=== PATIENT | male | born 1930 | race Caucasian/White ===

== ENCOUNTER → 2016-10-16 | Outpatient (CLI) | payer MEDICARE, BC, OTHER ==
--- NOTE | 2016-10-16 14:30 | REP ---
LEFT KNEE, FIVE VIEWS: Multiple views of the left knee are performed. There is no evidence of acute fracture or dislocation. There are moderate degenerative changes. There is moderate medial joint space narrowing with subchondral sclerosis and spurring. There is spurring of the tibial spines. There is some calcification of the distal quadriceps tendon above the patella. There is a large spur of the lateral patellar facet. There appears to be a small joint effusion. IMPRESSION: Moderate degenerative changes. No evidence of fracture or dislocation. Signed by Nino Elder MD 10/16/2016 04:44 P
== END ==
LOC: M WUC 13:10
PROVIDERS: ATTEND Physician Assistant
DX: M17.12 Unilateral primary osteoarthritis, left knee (principal)

== ENCOUNTER 2016-12-05 12:50 | Outpatient (RCR) | payer MEDICARE, BC, OTHER | END 2016-12-07 | LOC: M CR 12:50 | PROVIDERS: ATTEND Internal Medicine | DX: Z51.89 Encounter for other specified aftercare (principal); Z98.61 Coronary angioplasty status; I25.10 Atherosclerotic heart disease of native coronary artery without angina pectoris ==

== ENCOUNTER → 2016-12-24 | Outpatient (CLI) | payer MEDICARE, BC, OTHER ==
--- NOTE | 2016-12-25 08:58 | REP ---
PET/CT: History: Diagnosing lung carcinoma. History of prostate carcinoma status post radiation therapy in 2006. Comparisons: Comparison chest CT study November 28, 2016 from [facility] shows abnormal bilateral upper lobe opacities. TECHNIQUE: 48 minutes following the intravenous injection of a 10.7 mCi dose of F-18 FDG, three-dimensional PET scintigraphy is acquired from the skull base to the proximal thighs. Triplanar noncontrast CT scanning is acquired through the same anatomic range for attenuation correction, and image registration with scan parameters optimized to minimize radiation exposure to the patient. PET scintigraphy and CT datasets were fused and displayed on a workstation with multiplanar and projection display capability. PET/CT Findings: The nodular lesion in the left upper lobe near the posterior apex shows discernible FDG accumulation. It displays a maximum standard uptake value of 1.58, a mean value of 1.32 and a diameter of 11 mm. It is not felt to be in the hypermetabolic range at this time. No other abnormal hypermetabolic uptake is seen within the chest. There is no discernible FDG accumulation in the area of posterior pleural thickening or fibrosis seen at the right lung apex on recent chest CT. No other abnormal hypermetabolic uptake is seen within the chest. Head and neck soft tissues are unremarkable. No abnormal hypermetabolic uptake is seen in the abdomen, pelvis or proximal thighs. No abnormal skeletal hypermetabolic uptake is seen. Impression: The left upper lobe opacity shows discernible but non-hypermetabolic FDG accumulation. Malignancy cannot be completely excluded. Follow-up chest CT in 4-6 months recommended. Signed by Delio Deng MD 12/25/2016 10:12 A
== END ==
LOC: M PLARAD 14:34
PROVIDERS: ATTEND Internal Medicine
DX: R91.8 Other nonspecific abnormal finding of lung field (principal); D38.1 Neoplasm of uncertain behavior of trachea, bronchus and lung; Z85.6 Personal history of leukemia; Z85.46 Personal history of malignant neoplasm of prostate; Z95.5 Presence of coronary angioplasty implant and graft; N28.1 Cyst of kidney, acquired; E78.00 Pure hypercholesterolemia, unspecified; I44.0 Atrioventricular block, first degree
CPT/HCPCS: 78815; A9552

== ENCOUNTER 2016-12-29 09:18 | Outpatient (RCR) | payer MEDICARE, BC, OTHER | END 2017-01-07 | LOC: M CR 09:18 | PROVIDERS: ATTEND Internal Medicine | DX: Z51.89 Encounter for other specified aftercare (principal); Z98.61 Coronary angioplasty status; I25.10 Atherosclerotic heart disease of native coronary artery without angina pectoris ==

== ENCOUNTER 2017-01-08 08:56 | Outpatient (RCR) | payer MEDICARE, BC, OTHER | END 2017-02-06 | LOC: M CR 08:56 | PROVIDERS: ATTEND Internal Medicine | DX: Z51.89 Encounter for other specified aftercare (principal); I25.10 Atherosclerotic heart disease of native coronary artery without angina pectoris; Z98.61 Coronary angioplasty status ==

== ENCOUNTER → 2017-06-22 | Outpatient (REF) | payer MEDICARE, BC, OTHER ==
[2017-06-22 18:02] LABS: MEAN CORPUSCULAR HEMOGLOBIN 29.3 pg (27.0-33.0); MEAN CORPUSCULAR HGB CONC 31.9 g/dl (32.0-36.5); MEAN CORPUSCULAR VOLUME 91.8 fl (80.0-96.0); PLATELET COUNT, AUTOMATED 155 10^3/uL (150-450); RED CELL DISTRIBUTION WIDTH 13.5 % (11.5-14.5); WHITE BLOOD COUNT 10.1 10^3/uL (4.0-10.0)
[2017-06-22 18:14] LABS: INR 0.99
[2017-06-22 18:39] LABS: ALBUMIN 4.1 GM/DL (3.2-5.2); ANION GAP 6 MEQ/L (8-16); BLOOD UREA NITROGEN 21 MG/DL (7-18); CALCIUM LEVEL 9.4 MG/DL (8.8-10.2); CARBON DIOXIDE LEVEL 29 MEQ/L (21-32); CHLORIDE LEVEL 106 MEQ/L (98-107); CREATININE FOR GFR 0.85 MG/DL (0.70-1.30); GLOMERULAR FILTRATION RATE > 60.0 (>35); GLUCOSE, FASTING 100 MG/DL (83-110); PHOSPHORUS LEVEL 3.8 MG/DL (2.5-4.9); POTASSIUM SERUM 4.2 MEQ/L (3.5-5.1); SODIUM LEVEL 141 MEQ/L (136-145)
== END ==
LOC: M LABDRAW1 15:32
PROVIDERS: ATTEND Internal Medicine Cardiovascular Disease
DX: I20.0 Unstable angina (principal); Z95.5 Presence of coronary angioplasty implant and graft

== ENCOUNTER → 2017-07-23 | Outpatient (REF) | payer MEDICARE, BC, OTHER ==
[2017-07-23 18:25] LABS: PERCENT SATURATION 15.5 % (19.7-50.0)
== END ==
LOC: M LAB REF 15:22
PROVIDERS: ATTEND Internal Medicine
DX: D64.9 Anemia, unspecified (principal)

== ENCOUNTER 2017-09-04 08:40 | Outpatient (RCR) | payer MEDICARE, BC, OTHER | END 2017-09-09 | LOC: M CR 08:40 | DX: Z95.1 Presence of aortocoronary bypass graft (principal) | CPT/HCPCS: 93798 ==

== ENCOUNTER 2017-09-10 09:15 | Outpatient (RCR) | payer MEDICARE, BC, OTHER | END 2017-10-07 | LOC: M CR 09:15 | DX: Z95.1 Presence of aortocoronary bypass graft (principal) | CPT/HCPCS: 93798 ==

== ENCOUNTER → 2017-09-29 | Outpatient (REF) | payer MEDICARE, OTHER ==
[2017-09-29 14:03] LABS: IRON (FE) 55 UG/DL (65-175); PERCENT SATURATION 19.2 % (19.7-50.0); TOTAL IRON BINDING CAPACITY 286 UG/DL (250-450)
== END ==
LOC: M LAB REF 13:33
DX: D64.9 Anemia, unspecified (principal)
CPT/HCPCS: 83550

== ENCOUNTER 2017-10-09 13:15 | Outpatient (RCR) | payer MEDICARE, BC, OTHER | END 2017-11-07 | LOC: M CR 13:15 | DX: Z51.89 Encounter for other specified aftercare (principal); Z95.1 Presence of aortocoronary bypass graft | CPT/HCPCS: 93798 ==

== ENCOUNTER 2017-11-09 12:55 | Outpatient (RCR) | payer MEDICARE, BC, OTHER | END 2017-12-07 | LOC: M CR 12:55 | DX: Z95.1 Presence of aortocoronary bypass graft (principal) | CPT/HCPCS: 93798 ==

== ENCOUNTER → 2017-11-20 | Outpatient (REF) | payer MEDICARE, OTHER ==
[2017-11-20 13:33] LABS: FERRITIN 92 NG/ML (26-388); IRON (FE) 88 UG/DL (65-175); PERCENT SATURATION 30.3 % (19.7-50.0); TOTAL IRON BINDING CAPACITY 290 UG/DL (250-450)
[2017-11-21 08:07] LABS: TRANSFERRIN 212 mg/dL (200-370)
== END ==
LOC: M LAB REF 12:53
DX: I25.118 Atherosclerotic heart disease of native coronary artery with other forms of angina pectoris (principal); D64.9 Anemia, unspecified
CPT/HCPCS: 83550

== ENCOUNTER → 2018-02-17 | Outpatient (REF) | payer MEDICARE, OTHER ==
[2018-02-17 13:59] LABS: TESTOSTERONE 8 NG/DL (241-827)
== END ==
LOC: M LAB REF 13:33
DX: C61 Malignant neoplasm of prostate (principal)
CPT/HCPCS: 84403

== ENCOUNTER → 2018-07-28 | Outpatient (CLI) | payer MEDICARE, BC, OTHER ==
[~2018-07-28] MED LIST: ASPI81TA85 PO; ATOR1TAB21 PO; BIMA01SOL OU; COLA100C5 PO; D31000TA PO; DAILTAB65 PO; FERR325T16 PO; FOLI5INJ2 PO; SIMB1SUS OU; TIMO0.2529 OU; TYLE500T78 PO
--- NOTE | 2018-07-30 19:41 | ECHO ---
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 HEIGHT: 6 feet 1 inch WEIGHT: 165 pounds 2D MEASUREMENTS: Aortic annulus: 2.2 cm Left atrium: 4.0 cm Left ventricle diastole: 4.7 cm Ventricular septum: 1.03 cm Posterior wall: 0.82 cm Inferior vena cava: 1.6 cm DOPPLER MEASUREMENTS: Mild aortic regurgitation. Aortic regurgitation pressure half time: 376 ms Peak aortic valve velocity: 130 cm/s LVOT velocity: 93.0 cm/s LVOT VTI: 22.0 cm Mild mitral regurgitation. Mitral E velocity: 75.5 cm/s Mitral A velocity: 78.0 cm/s Mitral deceleration time: 250 ms Mild tricuspid regurgitation. Estimated right ventricle systolic pressure 33-38 mmHg assuming a right atrial pressure of 5-10 mmHg. MITRAL ANNULAR TISSUE DOPPLER: E prime septal: 6.7 cm/s E prime lateral: 8.6 cm DESCRIPTION: Rhythm was sinus. Image quality was adequate. No pericardial effusion. This is a 2D, M-mode, color flow Doppler and pulse wave Doppler examination that included mitral annular tissue Doppler. CONCLUSIONS: 1. Mild mitral annular calcification. Mild mitral regurgitation. 2. Mild aortic valve sclerosis of a three-cuspid aortic valve. Mild aortic regurgitation. 3. Normal left ventricle internal dimensions and wall thickness. Normal regional left ventricle (LV) wall motion and wall thickening. Normal LV systolic function. Left ventricular ejection fraction (LVEF) 60% by visual estimate. Grade 1 LV diastolic dysfunction. 4. Suggestive of mild elevation of estimated right ventricle systolic pressure. 5. Otherwise normal appearing echocardiogram Doppler findings.
== END ==
LOC: M CARPUL 08:22
PROVIDERS: ATTEND Internal Medicine Cardiovascular Disease
DX: I34.0 Nonrheumatic mitral (valve) insufficiency (principal)

== ENCOUNTER → 2018-08-17 | Outpatient (REF) | payer MEDICARE, OTHER | LOC: M LAB REF 18:45 | PROVIDERS: ATTEND Internal Medicine | DX: C61 Malignant neoplasm of prostate (principal) ==

== ENCOUNTER 2018-11-23 18:14 | Emergency (ER) | payer MEDICARE, OTHER ==
[~2018-11-23] VITALS: Ht 185.4 cm; Wt 74.1 kg
[2018-11-23 19:40] LABS: HEMATOCRIT 42.1 % (42.0-52.0); HEMOGLOBIN 13.7 g/dl (13.5-17.5); MEAN CORPUSCULAR HEMOGLOBIN 29.6 pg (27.0-33.0); MEAN CORPUSCULAR HGB CONC 32.5 g/dl (32.0-36.5); MEAN CORPUSCULAR VOLUME 90.9 fl (80.0-96.0); PLATELET COUNT, AUTOMATED 122 10^3/uL (150-450); RED BLOOD COUNT 4.63 10^6/uL (4.30-6.10)
[2018-11-23] MEDS ORDERED: cloNIDine 0.1 MG TAB PO ONE ×2 (19:45→22:45)
[2018-11-23 19:49] LABS: WHITE BLOOD COUNT 12.6 10^3/uL (4.0-10.0)
--- NOTE | 2018-11-23 19:59 | REP ---
Chest one-view HISTORY: Chest pain Comparison: None The lungs are clear. The heart is normal in size. The pulmonary vasculature is normal in appearance. Impression: No acute disease. Electronically Signed by Nikolai Pedroza MD 11/23/2018 07:50 P
[2018-11-23 20:02] LABS: ALBUMIN 4.6 GM/DL (3.2-5.2); ALT/SGPT 23 U/L (12-78); BILIRUBIN,TOTAL 0.6 MG/DL (0.2-1.0); BLOOD UREA NITROGEN 22 MG/DL (7-18); CALCIUM LEVEL 9.4 MG/DL (8.8-10.2); CARBON DIOXIDE LEVEL 27 MEQ/L (21-32); CHLORIDE LEVEL 108 MEQ/L (98-107); CREATININE FOR GFR 0.93 MG/DL (0.70-1.30); GLOMERULAR FILTRATION RATE > 60.0 (>35); GLUCOSE, FASTING 93 MG/DL (70-100); POTASSIUM SERUM 3.9 MEQ/L (3.5-5.1); SODIUM LEVEL 141 MEQ/L (136-145); TOTAL PROTEIN 7.5 GM/DL (6.4-8.2)
[2018-11-23 20:48] LABS: ATYPICAL LYMPH 1 % (0-5); LYMPHOCYTES 61 % (16-52); MONOCYTES 2 % (0-8); NEUTROPHILS 36 % (35-75); SMUDGE CELLS 2+
[2018-11-23 20:49] LABS: PLATELET ESTIMATE DECREASED (NORMAL)
--- NOTE | 2018-11-23 21:46 | ECGEPIP ---
Stationary ECG Study [facility] - ED Test Date: 2018-11-23 Pat Name: VANGIE CARSON Department: Room: - Gender: M It Analyst: : 1930 Requested By: ROLANDA CHAUDHRY Order Number: [id number] Reading MD: Tonja York Measurements Intervals [place] Rate: 75 P: 90 [place]: 273 QRS: -14 QRSD: 104 T: 56 QT: 405 QTc: 455 Interpretive Statements SINUS RHYTHM WITH FIRST DEGREE AV BLOCK NSTTW ABNORMALITY NO PRIOR FOR COMPARISON Electronically Signed On 11-23-2018 21:46:51 EDT by Tonja York
[2018-11-23 22:47] VITALS: BP 159/72
[2018-11-23 23:30] VITALS: BP 153/70
== END 2018-11-23 23:51 | disposition home or self-care (01) ==
LOC: M ED 18:14
DX: I10 Essential (primary) hypertension (principal); R00.0 Tachycardia, unspecified; E78.5 Hyperlipidemia, unspecified; D50.9 Iron deficiency anemia, unspecified; Z95.1 Presence of aortocoronary bypass graft; Z88.5 Allergy status to narcotic agent; Z91.041 Radiographic dye allergy status; Z79.899 Other long term (current) drug therapy; Z79.82 Long term (current) use of aspirin

== ENCOUNTER → 2019-02-17 | Outpatient (REF) | payer MEDICARE, OTHER | LOC: M LAB REF 12:24 | PROVIDERS: ATTEND Internal Medicine | DX: C61 Malignant neoplasm of prostate (principal) ==

== ENCOUNTER 2019-07-09 20:45 | Inpatient (IN) | payer MEDICARE, OTHER ==
[~2019-07-09] VITALS: Ht 185.4 cm; Wt 72.9 kg
[2019-07-09] MEDS ORDERED: LISI2.5T76 PO (21:20)
[2019-07-09] MEDS ORDERED: NORV5TAB PO (21:20)
[2019-07-09] MEDS ORDERED: MIDO2.5T PO (21:20)
[2019-07-09] MEDS ORDERED: prevagen PO (21:20)
[2019-07-09] MEDS ORDERED: RHOP0.02 OU (21:20)
[2019-07-09 21:25] LABS: HEMATOCRIT 42.7 % (42.0-52.0); HEMOGLOBIN 13.7 g/dl (13.5-17.5); MEAN CORPUSCULAR HEMOGLOBIN 29.6 pg (27.0-33.0); MEAN CORPUSCULAR HGB CONC 32.1 g/dl (32.0-36.5); MEAN CORPUSCULAR VOLUME 92.2 fl (80.0-96.0); PLATELET COUNT, AUTOMATED 147 10^3/uL (150-450); RED BLOOD COUNT 4.63 10^6/uL (4.30-6.10)
[2019-07-09] MEDS ORDERED: ACETAMINOPHEN 500 MG TAB PO ONE (21:30)
[2019-07-09] MEDS ORDERED: NS 500 ML IV ONE (21:30)
[2019-07-09] MEDS ORDERED: ADENOSINE 6MG/2ML INJECTION (J0153) As Ordered ONE ×2 (21:38→21:41)
[2019-07-09] MEDS ORDERED: ADENOSINE 6MG/2ML INJECTION (J0153) IV STA (21:42)
[2019-07-09] MEDS ORDERED: METOPROLOL 5 MG/5 ML VIAL As Ordered ONE (21:48)
[2019-07-09 21:49] LABS: ALBUMIN 4.1 GM/DL (3.2-5.2); ALT/SGPT 25 U/L (12-78); BILIRUBIN,DIRECT 0.2 MG/DL (0.0-0.2); BILIRUBIN,TOTAL 0.5 MG/DL (0.2-1.0); BLOOD UREA NITROGEN 29 MG/DL (7-18); CALCIUM LEVEL 9.8 MG/DL (8.8-10.2); CARBON DIOXIDE LEVEL 27 MEQ/L (21-32); CHLORIDE LEVEL 101 MEQ/L (98-107); CREATININE FOR GFR 1.01 MG/DL (0.70-1.30); GLOMERULAR FILTRATION RATE > 60.0 (>35); GLUCOSE, FASTING 151 MG/DL (70-100); POTASSIUM SERUM 3.9 MEQ/L (3.5-5.1); SODIUM LEVEL 138 MEQ/L (136-145); TOTAL PROTEIN 7.6 GM/DL (6.4-8.2)
[2019-07-09 21:51] LABS: ATYPICAL LYMPH 35 % (0-5); LYMPHOCYTES 18 % (16-44); NEUTROPHILS 40 % (28-66); PLATELET ESTIMATE NORMAL (NORMAL); SMUDGE CELLS 3+
[2019-07-09 21:52] LABS: POIKILOCYTOSIS 1+; POLYCHROMASIA 1+
[2019-07-09] MEDS ORDERED: METOPROLOL 5 MG/5 ML VIAL IV STA ×2 (21:55→21:58)
[2019-07-09 22:00] LABS: INFLUENZA A AMPLIFICATION NEGATIVE (NEGATIVE); INFLUENZA B AMPLIFICATION NEGATIVE (NEGATIVE)
[2019-07-09] MEDS ORDERED: METOPROLOL TART 50 MG TAB PO ONE (22:00)
[2019-07-09 22:19] LABS: APPEARANCE, URINE CLEAR (CLEAR); BILIRUBIN, URINE AUTO NEGATIVE (NEGATIVE); BLOOD, URINE BLOOD 2+ (NEGATIVE); COLOR, URINE STRAW (YELLOW); GLUCOSE, URINE (UA) AUTO 1+ mg/dL (NEGATIVE); KETONE, URINE AUTO NEGATIVE (NEGATIVE); LEUKOCYTE ESTERASE, URINE AUTO NEGATIVE (NEGATIVE); NITRITE, URINE AUTO NEGATIVE (NEGATIVE); PROTEIN, URINE AUTO 1+ mg/dL (NEGATIVE); SPECIFIC GRAVITY URINE AUTO 1.011 (1.002-1.035); UROBILINOGEN, URINE AUTO 0.2 mg/dL (0.0-2.0)
[2019-07-09 22:20] LABS: FREE THYROXINE INDEX 3.9 % (1.4-3.8); T UPTAKE 34 % (33-40); THYROXINE (T4) 11.5 UG/DL (4.5-12.0)
[2019-07-09 22:20] LABS: BACTERIA, URINE AUTO NEGATIVE (NEGATIVE); RBC, URINE AUTO 33 /HPF (0-3); SQUAMOUS EPITHELIAL CELL UR AU 0 /HPF (0-6); WBC, URINE AUTO 0 /HPF (0-3)
[2019-07-09] MEDS ORDERED: IBUPROFEN 800 MG TAB PO ONE (22:45)
[2019-07-09] MEDS ORDERED: LISI-542 PO (23:23)
[2019-07-09] MEDS ORDERED: ACET-683 PO (23:23)
[2019-07-09] MEDS ORDERED: PRES10CA2 PO (23:23)
[2019-07-09] MEDS ORDERED: [UNRECOGNIZED DRUG - OTHER] PO (23:23)
[2019-07-10 00:45] VITALS: BP 144/66
[2019-07-10] MEDS ORDERED: LISINOPRIL 5 MG TAB PO PRN (01:00)
[2019-07-10] MEDS: SENOKOT S TAB PO SCH ×3 (01:30→20:32)
--- NOTE | 2019-07-10 01:46 | HPEPDOC ---
General Date of Admission 07/09/19 Date of Service: Jul 09, 2019 Chief Complaint The patient is a 89-year-old male admitted with a reason for visit of Blood Pressure Problem. 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 Patient has been unwell for the past 11 days with a sore throat, decreased voice, cough with sticky sputum difficult to bring up, wheezing . He had gone to the urgent care for this he was given an inhaler and a 10 day course cefuroxime. He finished the antibiotics yesterday. And today he had the fever and chills. On arrival to the ED he was febrile to 102.6 and tachycardic to 177 hypertension to 205/91. Patient was in SVT. Patient was given 2 doses of adenosine (6+12) and SVT broke. ED provider felt that it was Afib with rvr with rate of 116 so was given 1 dose of iv metoprolol. He stood up to uses the urinal and he again reverted to svt so vagal maneuvers were done and carotid massage and give another dose of metoprolol iv and po. This brought the rate down to 90s. Patient was given tylenol which brought down his temperature. CXR did not show any acute infiltrates or pneumonia. Wbc was at 15K , lactate was not elevated and his ua was clean. He was admitted For a respiratory tract infection and SVT. On my evaluation of the EKGs the first one was SVT however the second one is sinus tachycardia with rate of 116 and not Afib with rvr. I ordered another EKG to recheck rhythm . On monitor it appears sinus rhythm with rate of 92. Home Medications Scheduled Aspirin (Aspir 81) 81 Mg Tab, 81 MG PO DAILY, (Reported) Atorvastatin Calcium (Atorvastatin Calcium) 20 Mg Tab, 40 MG PO DAILY, (Reported) Bimatoprost (Lumigan) 50 Drop/2.5 Ml Nusrat, 1 DROP OU DAILY, (Reported) Brinzolamide/Brimonidine Tart (Simbrinza 1%-0.2% Eye Drops) 1 Nati Nati, 1 DROP OU TID, (Reported) Cholecalciferol (Vitamin D3) (Vitamin D3) 1,000 Unit Tab, 1,000 UNIT PO DAILY, (Reported) Docusate Sodium (Colace) 100 Mg Cap, 100 MG PO DAILY, (Reported) Multivitamin (Daily Vitamin Formula) 1 Tab Tab, 1 TAB PO DAILY, (Reported) Netarsudil Mesylate (Rhopressa) 2.5 Ml Drops, 1 DROP OU QHS, (Reported) Timolol Maleate (Timoptic) 0.25 % Nusrat, 1 DROP OU DAILY, (Reported) Vit C/E/Zn/Coppr/Lutein/Zeaxan (Preservision Areds 2 Softgel) 1 Each Capsule, 1 EACH PO QPM, (Reported) [Evolv Immun] , 1 TAB PO DAILY, (Reported) Scheduled PRN Acetaminophen (Acetaminophen) 500 Mg Tablet, 500 MG PO QHS PRN for PAIN, (Reported) Amlodipine Besylate (Norvasc) 5 Mg Tablet, 5 MG PO DAILY PRN for htn, (Reported) USE FOR EMERGENCY HIGH BLOOD PRESSURE ONLY IF LISINOPRIL NOT EFFECTIVE Lisinopril (Lisinopril) 5 Mg Tablet, 5 MG PO DAILY PRN for HIGH BLOOD PRESSURE, (Reported) USE ONLY IF BP OVER 130/80 Midodrine HCl (Midodrine HCl) 2.5 Mg Tablet, 2.5 MG PO PRN PRN for low BP, (Reported) USE ONLY IF BP BELOW 100/80 Miscellaneous Medications [prevagen] , (Reported) Allergies Coded Allergies: Contrast Media (Verified Allergy, Unknown, 11/18/17) oxycodone (Verified Allergy, Unknown, 11/23/18) Past Medical History Medical History CLL/small lymphocytic lymphoma, CAD with AMI in 1996 s/p CABG and stents, Hypertension, hyperlipidemia, prostate cancer s/p cryosurgery, hiatal hernia, bilateral direct inguinal hernia repair, left adrenal surgery, iron def anemia, Glaucoma with poor vision, hemorrhoids and diverticulosis Family History discussed with patient father and mother had heart trouble and hypertension Social History * Smoker: Denies Alcohol: Denies Drugs: denies A-FIB/CHADSVASC A-FIB History Current/History of A-Fib/PAF?: No Review of Systems Constitutional: Reports: Chills, Fever Eyes: Denies: Pain, Vision change ENT: Reports: Head Aches, Post Nasal Drip, Sore Throat Skin: Denies: Rash, Lesions, Breakdown Pulmonary: Reports: Cough Cardiovascular: Reports: Chest Pain (right sided) Gastrointestinal: Denies: Nausea, Vomiting, Abdominal Pain, Diarrhea Genitourinary: Denies: Dysuria, Frequency, Incontinence, Retention Musculoskeletal: Denies: Neck Pain, Back Pain, Joint Pain, Muscle Pain, Spasms Physical Examination General Exam: Positive: Alert, Cooperative, No Acute Distress Eye Exam: Positive: PERRLA, Conjunctiva & lids normal, EOMI; Negative: Sclera icteric ENT Exam: Positive: Atraumatic, Mucous membr. moist/pink, Pharynx Normal, Tongue Midline Neck Exam: Positive: Supple; Negative: JVD, thyromegaly Chest Exam: Positive: Diminished, Other (bilateral basal crackles. ) Heart Exam: Positive: Rate Normal, Regular Rhythm, Normal S1, Normal S2; Negative: Gallops, Murmurs, Rubs Telemetry: Positive: Sinus Abdomen Exam: Positive: Normal bowel sounds, Soft; Negative: Tenderness, Hepatospenomegaly Extremity Exam: Negative: Clubbing, Cyanosis, Edema Skin Exam: Positive: Nl turgor and temperature; Negative: Breakdown, Lesion Neuro Exam: Positive: Normal Speech, Strength at 5/5 X4 ext, Normal Tone Psych Exam: Positive: Memory Intact, Oriented x 3 Vital Signs Vital Signs Date Time Temp Pulse Resp B/P (MAP) Pulse Ox O2 Delivery O2 Flow Rate FiO2 07/09/19 23:15 18 147/67 (93) Room Air 07/09/19 23:02 93 93 07/09/19 22:32 102.6 Laboratory Data Labs 24H Laboratory Tests 2 07/09/19 21:12: Lymphocytes # (Auto) , Nucleated Red Blood Cells % (auto) 0.0, Neutrophils 40, Band Neutrophils 7, Lymphocytes (Manual) 18, Atypical Lymphocytes 35H, Polychromasia 1+, Poikilocytosis 1+, Acanthocytes 1+, Smudge Cells 3+, Platelet Estimate NORMAL, Anion Gap 10, Glomerular Filtration Rate > 60.0, Calcium Level 9.8, Total Bilirubin 0.5, Direct Bilirubin 0.2, Aspartate Amino Transf (AST/SGOT) 20, Alanine Aminotransferase (ALT/SGPT) 25, Alkaline Phosphatase 86, Total Protein 7.6, Albumin 4.1, Albumin/Globulin Ratio 1.17, Thyroid Stimulating Hormone (TSH) 1.200, Free Thyroxine Index 3.9H, Thyroxine (T4) 11.5, Triiod othyronine (T3) Uptake 34 07/09/19 21:19: Lactic Acid Level 1.6, Influenza Type A (RT-PCR) NEGATIVE, Influenza Type B (RT- PCR) NEGATIVE 07/09/19 21:22: Urine Color STRAW, Urine Appearance CLEAR, Urine pH 8.0, Urine Specific [place] 1.011, Urine Protein 1+H, Urine Glucose (Auto)(UA) 1+H, Urine Ketones (Auto) NEGATIVE, Urine Blood 2+H, Urine Nitrite NEGATIVE, Urine Bilirubin NEGATIVE, Urine Urobilinogen 0.2, Urine Leukocyte Esterase (Auto) NEGATIVE, Urine WBC (Auto) 0, Urine RBC (Auto) 33H, Urine Hyaline Casts (Auto) 0, Urine Bacteria (Auto) NEGATIVE, Urine Squamous Epithelial Cells 0, Urine Sperm (Auto) CBC/BMP Laboratory Tests 07/09/19 21:12 Microbiology Microbiology 07/09/19 Urine Culture, Received Pending 07/09/19 Blood Culture, Received Pending 07/09/19 Blood Culture, Received Pending Assessment/Plan 89 year old male from home with poor vision and PMH of CLL/ small lymphocytic lymphoma, CAD with AMI in 1996 s/p CABG and stents, Hypertension, hyperlipidemia, prostate cancer s/p cryosurgery, hiatal hernia, bilateral direct inguinal hernia repair, left adrenal surgery, iron def anemia, Glaucoma with legal blindness, hemorrhoids and diverticulosis presented to the ED today for chills and tremors at home which started at about 3 pm. Patient has been unwell for the past 11 days with a sore throat, decreased voice, cough with sticky sp utum difficult to bring up, wheezing . He had gone to the urgent care for this he was given an inhaler and a 10 day course cefuroxime. He finished the antibiotics yesterday. And today he had the fever and chills. On arrival to the ED he was febrile to 102.6 and tachycardic to 177 hypertension to 200/92. Patient was in SVT. Patient was given 2 doses of adenosine (6+12) and SVT broke. ED provider felt that it was Afib with rvr with rate of 116 so was given 1 dose of iv metoprolol. He stood up to uses the urinal and he again reverted to svt so vagal maneuvers were done and carotid massage and give another dose of metoprolol iv and po. This brought the rate down to 90s. Patient was given tylenol which brought down his temperature. CXR did not show any acute infiltrates or pneumonia. Wbc was at 15K , lactate was not elevated and his ua was clean. He was admitted For a respiratory tract infection and SVT. SVT resolved after adenosine and metoprolol. now in sinus rhythm I do not think he had afib with rvr in the ED though the ekg is reading A fib with rvr. I think it is sinus tachycardia. will get another EKG will continue to monitor on tele. Fever I have not found a source of infection yet. Probably respiratory as all his symptoms are upper respiratory tract. will get a CT chest tomorrow after some hydration to see if it shows some infiltrates or not. CBC shows a wbc of 15 k with increased atypical lymphocytes which is due to CLL. blood culture has been sent. UA clean. may be a viral syndrome. However a atypical bacteria not covered by cefuroxime is also possible will start on moxifloxacin. will also cover for pharyngeal thrush with nystatin swish and swallow will monitor CBC CLL/small lymphocytic lymphoma from bone marrow and flow cytometry in 2016 so has chronically elevated WBC with atypical lymphocytes. Hypertension will continue lasinopril and amlodipine patient also recieved metoprolol in the ED. CAD s/p cardiac stents in 1996 and 2016 and CABG in 2017 continue ASA, statin . Glaucoma Has a drainage tube on the right continue home eye drops Hyperlipidemia continue statin GERD continue PPI. Plan / VTE VTE Prophylaxis Ordered?: Yes EVGENY YUEN MD Jul 09, 2019 23:30
[2019-07-10] MEDS ORDERED: NS 1,000 ML IV SCH (02:00)
[2019-07-10 02:02] LABS: MAGNESIUM LEVEL 1.6 MG/DL (1.8-2.4)
[2019-07-10] MEDS: amLODIPine 5 MG TAB PO SCH ×2 (02:32→20:32)
[2019-07-10] MEDS: MOXIFLOXACIN HCL 400 MG in IV 1 EA IV SCH (03:54)
[2019-07-10 04:00] VITALS: BP 113/53
[2019-07-10] MEDS ORDERED: MAG SULF 1GM/100ML (MAG RUN) 1 GM in IV 1 EA IV ONE (05:00)
[2019-07-10 05:16] LABS: HEMATOCRIT 34.4 % (42.0-52.0); MEAN CORPUSCULAR HEMOGLOBIN 29.6 pg (27.0-33.0); MEAN CORPUSCULAR HGB CONC 32.3 g/dl (32.0-36.5); MEAN CORPUSCULAR VOLUME 91.7 fl (80.0-96.0); PLATELET COUNT, AUTOMATED 124 10^3/uL (150-450); RED BLOOD COUNT 3.75 10^6/uL (4.30-6.10)
[2019-07-10 05:18] LABS: WHITE BLOOD COUNT 24.7 10^3/uL (4.0-10.0)
[2019-07-10 05:19] LABS: HEMOGLOBIN 11.1 g/dl (13.5-17.5)
[2019-07-10 05:33] LABS: ATYPICAL LYMPH 34 % (0-5)
[2019-07-10 05:34] LABS: LYMPHOCYTES 19 % (16-44); MONOCYTES 2 % (0-5); NEUTROPHILS 42 % (28-66)
[2019-07-10 05:35] LABS: BLOOD UREA NITROGEN 32 MG/DL (7-18); CALCIUM LEVEL 8.2 MG/DL (8.8-10.2); CARBON DIOXIDE LEVEL 25 MEQ/L (21-32); CHLORIDE LEVEL 106 MEQ/L (98-107); CREATININE FOR GFR 0.97 MG/DL (0.70-1.30); GLOMERULAR FILTRATION RATE > 60.0 (>35); GLUCOSE, FASTING 110 MG/DL (70-100); POIKILOCYTOSIS 1+; POTASSIUM SERUM 3.7 MEQ/L (3.5-5.1); SMUDGE CELLS 2+; SODIUM LEVEL 139 MEQ/L (136-145)
[2019-07-10 05:36] LABS: ANISOCYTOSIS 1+; PLATELET ESTIMATE DECREASED (NORMAL); POLYCHROMASIA 1+
--- NOTE | 2019-07-10 06:19 | REP ---
Clinical: Systemic inflammatory response syndrome Comparison: 11/23/2018. Findings: Mediastinum and cardiac silhouette are stable. Evidence for prior sternotomy and CABG. Lung thompson demonstrate chronic changes without acute consolidation, effusion, or pneumothorax. Skeletal structures intact. Impression: Chronic stable changes. No acute cardiopulmonary process. Electronically Signed by Zeeshan George MD 07/10/2019 06:10 A
--- NOTE | 2019-07-10 07:54 | ECGEPIP ---
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
[2019-07-10 08:00] VITALS: BP 124/60
[2019-07-10] MEDS: ATORVASTATIN 20 MG TAB PO SCH (08:23)
[2019-07-10] MEDS: ASPIRIN 81 MG ENTERIC TAB PO SCH (08:23)
[2019-07-10] MEDS: ENOXAPARIN 30 MG/0.3 ML SYR (J1650) SC SCH (08:24)
[2019-07-10] MEDS: NYSTATIN 500,000 U/5 ML SUSP UDC SS SCH ×3 (08:24→20:32)
[2019-07-10] MEDS: LISINOPRIL 5 MG TAB PO SCH (08:24)
[2019-07-10] MEDS ORDERED: TIMOLOL MALEATE 0.25% OPHTH SOLN 5 ML OU SCH (09:00)
[2019-07-10] MEDS ORDERED: TIMOLOL MALEATE 0.25% OPHTH SOLN 5 ML OD SCH (09:00)
--- NOTE | 2019-07-10 10:13 | IPNPDOC ---
Date Seen The patient was seen on 07/10/19. Progress Note SUBJECTIVE: Patient reported feeling noticable improvement this morning. Fevers had resolved. BP remains stable. Tachycardia also resolved. Still reports having a persistent cough/URI symptoms. OBJECTIVE PHYSICAL EXAMINATION: VITAL SIGNS: Please see below. General: Alert, generalized weakness/elder, mild distress from cough with talking Eyes: Normal sclera, EOMI, AYANNA HENT: Atraumatic Cardiovascular: Normal rate Pulmonary: Diminished breath sounds b/l, no wheezing noted. GI: Soft, nontender, nondistended Skin: Warm and dry Neuro: CN grossly intact. No focal deficits. Generalized weakness. Psych: oriented x 3 LABORATORY DATA, IMAGING STUDIES, MICROBIOLOGY: Please see below. DVT prophylaxis ordered?: Lovenox ASSESSMENT AND PLAN: 1. URI symptoms - Viral vs. bacterial - URI symptoms and fevers. CXR shows no acute infiltrates. - Recently treated completed 10 day course of cefuroxime with initial improvement but started to feel worse again. - Presented with fevers which has now resolved with improvement in symptoms, now mostly complains of cough. - Obtain sputum culture, improved with Moxifloxacin, will keep antibiotics the same at this time. - f/u sputum culture. Urine and blood cultures. - To get CT chest. 2. SVT - Resolved. Noted to more likely sinus tachycardia on admission. - c/w tele monitoring. 3. CLL/small lymphocytic lymphoma with leukocytosis - chronic leukocytosis with atypical lymphocytes. - Noted on CBC. 4. HTN - c/w home medications. - monitor BP. 5. CAD - resume home meds. - s/p stents and CABG. 6. Glaucoma - c/w home eye drops as prescribed. 7. HLD - c/w statin. VS, I&O, 24H, Fishbone Vital Signs/I&O Vital Signs Date Time Temp Pulse Resp B/P (MAP) Pulse Ox O2 Delivery O2 Flow Rate FiO2 07/10/19 08:24 124/60 07/10/19 08:00 97.4 68 18 95 Room Air I&O- Last 24 Hours up to 6 AM 07/10/19 06:00 Intake Total 500 ml Output Total 300 ml Balance 200 ml Laboratory Data 24H LABS Laboratory Tests 2 07/09/19 21:12: Lymphocytes # (Auto) , Nucleated Red Blood Cells % (auto) 0.0, Neutrophils 40, Band Neutrophils 7, Lymphocytes (Manual) 18, Atypical Lymphocytes 35H, Polychromasia 1+, Poikilocytosis 1+, Acanthocytes 1+, Smudge Cells 3+, Platelet Estimate NORMAL, Anion Gap 10, Glomerular Filtration Rate > 60.0, Calcium Level 9.8, Magnesium Level 1.6L, Total Bilirubin 0.5, Direct Bilirubin 0.2, Aspartate Amino Transf (AST/SGOT) 20, Alanine Aminotransferase (ALT/SGPT) 25, Alkaline Phosphatase 86, Total Protein 7.6, Albumin 4.1, Albumin/Globulin Ratio 1.17, Th yroid Stimulating Hormone (TSH) 1.200, Free Thyroxine Index 3.9H, Thyroxine (T4) 11.5, Triiodothyronine (T3) Uptake 34 07/09/19 21:19: Lactic Acid Level 1.6, Influenza Type A (RT-PCR) NEGATIVE, Influenza Type B (RT- PCR) NEGATIVE 07/09/19 21:22: Urine Color STRAW, Urine Appearance CLEAR, Urine pH 8.0, Urine Specific [place] 1.011, Urine Protein 1+H, Urine Glucose (Auto)(UA) 1+H, Urine Ketones (Auto) NEGATIVE, Urine Blood 2+H, Urine Nitrite NEGATIVE, Urine Bilirubin NEGATIVE, Urine Urobilinogen 0.2, Urine Leukocyte Esterase (Auto) NEGATIVE, Urine WBC ( Auto) 0, Urine RBC (Auto) 33H, Urine Hyaline Casts (Auto) 0, Urine Bacteria (Auto) NEGATIVE, Urine Squamous Epithelial Cells 0, Urine Sperm (Auto) 07/10/19 04:53: Lymphocytes # (Auto) , Nucleated Red Blood Cells % (auto) 0.0, Neutrophils 42, Band Neutrophils 3, Lymphocytes (Manual) 19, Atypical Lymphocytes 34H, Polychromasia 1+, Poikilocytosis 1+, Smudge Cells 2+, Platelet Estimate DECREASED, Anion Gap 8, Glomerular Filtration Rate > 60.0, Calcium Level 8.2#L, Monocytes (Manual) 2, Anisocytosis 1+ CBC/BMP Laboratory Tests 07/09/19 21:12 07/10/19 04:53 Microbiology Microbiology 07/10/19 Gram Stain, Received Pending 07/10/19 Sputum Culture, Received Pending 07/09/19 Urine Culture, Received Pending 07/09/19 Blood Culture, Received Pending 07/09/19 Blood Culture, Received Pending MILLER,CANH T. MD Jul 10, 2019 10:13
[2019-07-10] MEDS ORDERED: TIMO0.5S29 OU (10:47)
--- NOTE | 2019-07-10 11:14 | REP ---
Clinical: Pneumonia. Technique: Axial noncontrast images from the thoracic inlet to the upper abdomen with coronal and sagittal re-formations. Comparison: 10/06/2017. Findings: Moderate chronic COPD/emphysematous changes along with mild bronchiectasis. Superimposed consolidation involving the lateral right middle lobe and right lower lobe with small right pleural reaction. No pneumothorax. Mediastinal adenopathy likely reactive. Atherosclerotic changes to the thoracic aorta and coronary arteries noted without aortic aneurysm or cardiomegaly. No pericardial effusion. Skeletal structures grossly unremarkable. Impression: 1. Superimposed consolidation involving the lateral right middle lobe and right lower lobe with small right pleural reaction. Electronically Signed by Zeeshan George MD 07/10/2019 11:05 A
[2019-07-10] MEDS: SIMBRINZA EYE OU SCH ×4 (11:26→22:05)
[2019-07-10] MEDS ORDERED: PROAAER10 INH (11:31)
[2019-07-10 12:00] VITALS: BP 134/64
[2019-07-10] MEDS ORDERED: SLF 3 ML SYR IV PRN (12:30)
[2019-07-10 16:00] VITALS: BP 158/68
[2019-07-10] MEDS: SLF 3 ML SYR IV SCH ×2 (16:15→22:05)
[2019-07-10 20:00] VITALS: BP 148/75
[2019-07-10] MEDS: LUMIGAN EYE DROPS (PATIENT'S OWN MED) OU SCH (20:32)
[2019-07-10] MEDS: RHOPRESSA EYE OU SCH (20:32)
--- NOTE | 2019-07-10 22:48 | ECGEPIP ---
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
[2019-07-10] MEDS: ACETAMINOPHEN 650MG ER TAB (TYLENOL ARTHRITIS) PO PRN (23:44)
[2019-07-11] VITALS: BP 162/78
[2019-07-11] MEDS: MOXIFLOXACIN HCL 400 MG in IV 1 EA IV SCH (03:41)
[2019-07-11 04:00] VITALS: BP 140/66
[2019-07-11 05:38] LABS: HEMATOCRIT 32.7 % (42.0-52.0); HEMOGLOBIN 10.6 g/dl (13.5-17.5); MEAN CORPUSCULAR HEMOGLOBIN 29.4 pg (27.0-33.0); MEAN CORPUSCULAR HGB CONC 32.4 g/dl (32.0-36.5); MEAN CORPUSCULAR VOLUME 90.8 fl (80.0-96.0); PLATELET COUNT, AUTOMATED 108 10^3/uL (150-450)
[2019-07-11 05:43] LABS: WHITE BLOOD COUNT 21.2 10^3/uL (4.0-10.0)
[2019-07-11 05:55] LABS: ATYPICAL LYMPH 6 % (0-5); LYMPHOCYTES 61 % (16-44); MONOCYTES 1 % (0-5); NEUTROPHILS 31 % (28-66)
[2019-07-11 05:56] LABS: ANISOCYTOSIS 1+; BLOOD UREA NITROGEN 18 MG/DL (7-18); CARBON DIOXIDE LEVEL 26 MEQ/L (21-32); CHLORIDE LEVEL 109 MEQ/L (98-107); CREATININE FOR GFR 0.72 MG/DL (0.70-1.30); GLOMERULAR FILTRATION RATE > 60.0 (>35); GLUCOSE, FASTING 94 MG/DL (70-100); PLATELET ESTIMATE DECREASED (NORMAL); POLYCHROMASIA 1+; POTASSIUM SERUM 3.4 MEQ/L (3.5-5.1); SMUDGE CELLS 2+; SODIUM LEVEL 140 MEQ/L (136-145)
[2019-07-11] MEDS: SLF 3 ML SYR IV SCH ×3 (06:02→22:39)
[2019-07-11] MEDS ORDERED: POTASSIUM CHLORIDE 10 MEQ SR TABLET PO ONE (07:30)
[2019-07-11 07:41] VITALS: BP 132/64
[2019-07-11] MEDS: SIMBRINZA EYE OU SCH ×3 (08:07→17:55)
[2019-07-11 08:25] LABS: MAGNESIUM LEVEL 1.9 MG/DL (1.8-2.4)
[2019-07-11] MEDS: SENOKOT S TAB PO SCH ×2 (09:13→20:37)
[2019-07-11] MEDS: ATORVASTATIN 20 MG TAB PO SCH (09:13)
[2019-07-11] MEDS: NYSTATIN 500,000 U/5 ML SUSP UDC SS SCH ×3 (09:13→20:37)
[2019-07-11] MEDS: ENOXAPARIN 30 MG/0.3 ML SYR (J1650) SC SCH (09:14)
[2019-07-11] MEDS: ASPIRIN 81 MG ENTERIC TAB PO SCH (09:14)
[2019-07-11] MEDS: LISINOPRIL 5 MG TAB PO SCH (09:14)
[2019-07-11] MEDS: TIMOLOL MALEATE 0.5% OPHTH SOLN 5 ML OU SCH (09:16)
--- NOTE | 2019-07-11 11:59 | IPNPDOC ---
Text Note Date of Service The patient was seen on 07/11/19. NOTE S: Pt examined at bedside. States he's feeling much better and breathing is improving, but still fells phlegm in throat. Coughing less. No complaints or events overnight. PE: Vitals: see below General: NAD, A&Ox3, resting comfortably, speaking full sentences with intermittent dry cough HEENT: NCAT, EOMI, anicteric sclera, MMM, oral thrush, no oral abscess or e xudates or ulcers. Post-nasal drip present CV: RRR, no clicks or gallops RESP: diminished sounds, rhonchi on right lower half, remaining thompson clear. No respiratory distress ABD: soft, NT, ND. Benign EXTREMITIES: 2+ radial pulses b/l, able to move all extremities NEURO: no focal deficits or acute changes A/P: 1. Community acquired pneumonia: Noted on Chest CT. Continue moxifloxacin-will transition to oral nearing discharge. White count trending down and patient is afebrile. Continue supportive care, antitussive, Acapella, incentive spirometer. Encourage ambulation and work with physical therapy. 2. Hypokalemia: Replaced CLL/small lymphocytic lymphoma: Chronic leukocytosis with atypical lymphocytosis, monitor. Hypertension: Controlled. Continue current meds. CAD S/P stents and CABG: Denies chest pain. Continue home meds. Hyperlipidemia: Continue statin. Glaucoma: Continue drops DVT ppx: mechanical DISPO: Work with physical therapy. Likely discharge home tomorrow. VS,Fishbone, I+O VS, Fishbone, I+O Laboratory Tests 07/11/19 05:13 Vital Signs Date Time Temp Pulse Resp B/P (MAP) Pulse Ox O2 Delivery O2 Flow Rate FiO2 07/11/19 09:14 132/64 07/11/19 07:41 98.4 70 18 93 Room Air I&O- Last 24 Hours up to 6 AM 07/11/19 06:00 Intake Total 1420 ml Output Total 1175 ml Balance 245 ml GME ATTESTATION GME ATTESTATION My faculty preceptor for this patient encounter was physically present during the encounter and was fully available. All aspects of the patient interview, examination, medical decision making process, and medical care plan development were reviewed and approved by the faculty preceptor. The faculty preceptor is aware and concurs with the plan as stated in the body of this note and will attest to such by his/her cosignature. ATTENDING NOTE I have personally evaluated and examined the patient. Discussed with residents and student regarding plan of care and agree with the above assessment and plan. ISRA KUMAR DO Jul 11, 2019 11:59 OSVALDO MILLER MD Jul 11, 2019 13:44
[2019-07-11 12:00] VITALS: BP 122/72
[2019-07-11] MEDS: guaiFENesin 200 MG TAB PO SCH ×3 (12:20→23:26)
[2019-07-11 16:00] VITALS: BP 128/68
[2019-07-11 20:00] VITALS: BP 142/70
[2019-07-11] MEDS: ACETAMINOPHEN 650MG ER TAB (TYLENOL ARTHRITIS) PO PRN (20:37)
[2019-07-11] MEDS: amLODIPine 5 MG TAB PO SCH (20:37)
[2019-07-11] MEDS: LUMIGAN EYE DROPS (PATIENT'S OWN MED) OU SCH (20:38)
[2019-07-11] MEDS: RHOPRESSA EYE OU SCH (20:38)
[2019-07-12] VITALS: BP 154/69
[2019-07-12] MEDS: MOXIFLOXACIN HCL 400 MG in IV 1 EA IV SCH (03:46)
[2019-07-12 04:00] VITALS: BP 164/80
[2019-07-12] MEDS: guaiFENesin 200 MG TAB PO SCH (05:08)
[2019-07-12] MEDS: SLF 3 ML SYR IV SCH (05:24)
[2019-07-12 05:57] LABS: BLOOD UREA NITROGEN 19 MG/DL (7-18); CALCIUM LEVEL 8.4 MG/DL (8.8-10.2); CARBON DIOXIDE LEVEL 25 MEQ/L (21-32); CHLORIDE LEVEL 111 MEQ/L (98-107); CREATININE FOR GFR 0.75 MG/DL (0.70-1.30); GLOMERULAR FILTRATION RATE > 60.0 (>35); GLUCOSE, FASTING 89 MG/DL (70-100); POTASSIUM SERUM 3.7 MEQ/L (3.5-5.1); SODIUM LEVEL 142 MEQ/L (136-145)
[2019-07-12 06:00] LABS: HEMATOCRIT 34.7 % (42.0-52.0); HEMOGLOBIN 11.1 g/dl (13.5-17.5); MEAN CORPUSCULAR HEMOGLOBIN 29.4 pg (27.0-33.0); PLATELET COUNT, AUTOMATED 108 10^3/uL (150-450); RED BLOOD COUNT 3.77 10^6/uL (4.30-6.10)
[2019-07-12 06:01] LABS: WHITE BLOOD COUNT 15.6 10^3/uL (4.0-10.0)
[2019-07-12 06:27] LABS: LYMPHOCYTES 69 % (16-44); NEUTROPHILS 31 % (28-66); PLATELET ESTIMATE NORMAL (NORMAL); POIKILOCYTOSIS 1+
[2019-07-12 07:30] VITALS: BP 168/78
[2019-07-12] MEDS: SIMBRINZA EYE OU SCH (07:52)
[2019-07-12] MEDS ORDERED: MOXI1TAB PO (08:14)
[2019-07-12] MEDS: NYSTATIN 500,000 U/5 ML SUSP UDC SS SCH (09:00)
[2019-07-12] MEDS: ENOXAPARIN 30 MG/0.3 ML SYR (J1650) SC SCH (09:00)
[2019-07-12] MEDS: SENOKOT S TAB PO SCH (09:24)
[2019-07-12 09:25] VITALS: BP 168/78
[2019-07-12] MEDS: ATORVASTATIN 20 MG TAB PO SCH (09:25)
[2019-07-12] MEDS: ASPIRIN 81 MG ENTERIC TAB PO SCH (09:25)
[2019-07-12] MEDS: LISINOPRIL 5 MG TAB PO SCH (09:25)
[2019-07-12] MEDS: TIMOLOL MALEATE 0.5% OPHTH SOLN 5 ML OU SCH (09:25)
--- NOTE | 2019-07-12 11:04 | DSES ---
DATE OF ADMISSION: 07/09/2019 DATE OF DISCHARGE: 07/12/2019 My preceptor for this encounter is Dr. Sinan Moore MD DISCHARGE DIAGNOSIS: 1. Community-acquired pneumonia, right middle and lower lobes with a small right pleural reaction. 2. Arrhythmia, sinus tachycardia versus supraventricular tachycardia (SVT), resolved. 3. Hypokalemia, repleted. HOSPITAL COURSE: This is an 89-year-old male, who presented to the emergency department on 07/09/2019 for chills and tremors at home. He had been feeling unwell for 11 days prior with a sore throat, decreased voice, a cough with difficult to bring up sputum, as well as wheezing. He had gone to the urgent care for this and was given an inhaler as well as a 10 day course of cefuroxime. He had finished the antibiotics a day before presentation to the emergency department, but continued to have fever and chills. When he arrived at the emergency department, he was febrile with a temperature of 102.6 and tachycardic at a rate of 177. His blood pressure was also noted to be hypertensive at 205/91. He was given two doses of adenosine and his arrhythmia broke. It was felt to be supraventricular tachycardia, with an underlying atrial fibrillation (AFib) with rapid ventricular response (RVR) versus sinus tachycardia. His rate was still 116, so he was given one dose of intravenous (IV) metoprolol. When he stood up to use the urinal he reverted back into SVT, so vagal maneuvers were done as well as carotid massage and his rate was back down to the 90s after being given IV and oral metoprolol. He was also given Tylenol, which brought down his temperature. He was admitted for upper respiratory tract infection as well as SVT. His SVT was resolved. After adenosine and metoprolol, he converted back into sinus rhythm. Source of infection was not known in the emergency department, but was thought to be respiratory in nature. Chest x-ray was unrevealing as to a cause, so a chest CT was ordered, which showed superimposed consolidation involving the lateral right middle lobe and right lower lobe with a small right pleural reaction. He was started on moxifloxacin 400 mg every 24 hours as he had failed outpatient cephalosporin therapy. He was also covered for pharyngeal thrush with nystatin swish and swallow. He started feeling better on the second day of hospitalization and his fevers had resolved. His tachycardia had also resolved. He passed physical therapy on 07/11/2019 and was transitioned to oral medications. He was also given an Acapella and incentive spirometer, which greatly increased his sputum production and he was able to get more of it out. He was felt to be back to his baseline on the day of discharge and had met all discharge criteria on 07/12/2019. PHYSICAL EXAM: Vital Signs: Temperature 97.5, pulse 70 and regular, respiratory rate 18 and unlabored, blood pressure 168/78, 96% on room air. General: This is an elderly, male sitting up in the chair at bedside. He is in no acute distress. He speaks in full sentences. HEENT: Normocephalic, atraumatic. Sclerae are anicteric. Mucous membranes are moist and he has minimal oral thrush. There is no oral abscesses, exudates or ulcerations. Neck: No jugular venous distention (JVD). No lymphadenopathy. Supple. Nontender. No masses. Heart: Regular rate and rhythm. No murmurs, gallops or rubs. Lungs: Clear to auscultation bilaterally in the apices. He does have some crackles in the bilateral lower lung thompson. He is not using accessory muscles to breathe. Abdomen: Soft, nontender, nondistended. Positive bowel sounds in all four quadrants. No palpable masses. Extremities: No bilateral lower extremity edema, no clubbing or cyanosis. Neurologic: Muscle strength 5/5 bilaterally. No deficits. Sensation intact throughout. Cranial nerves II-XII grossly intact. DISCHARGE MEDICATIONS: - moxifloxacin 14 mg tablets 1 tablet daily for 2 days to complete an antibiotic course of 5 days for community-acquired pneumonia - Tylenol 5 mg by mouth nightly as needed for pain - albuterol inhaler 2 puffs every 4 hours as needed - amlodipine 5 mg by mouth daily as needed for hypertension - aspirin 81 mg by mouth daily - atorvastatin 40 mg by mouth daily - Lumigan 1 drop both eyes every evening - Simbrinza eye drops both eyes three times a day - vitamin D3 1000 units by mouth daily - Colace 100 mg by mouth every evening - Evolv Immun 1 tablet by mouth daily - lisinopril 5 mg by mouth daily as needed for high blood pressure - midodrine 2.5 mg by mouth as needed for hypotension - multivitamin 1 tablet by mouth daily - Rhopressa drops 1 drop both eyes nightly - Prevagen 1 tablet by mouth daily - Timolol maleate drops 0.5% 1 drop both eye every morning - PreserVision AREDS 1 capsule by mouth every evening LABORATORY DATA: CBC: WBC 15.6, hemoglobin 11.1, hematocrit 34.7, platelets 108. Chemistry: Sodium 142, potassium 3.7, chloride 111, carbon dioxide 25, BUN 19, creatinine 0.75, fasting glucose 89, calcium 8.4. MICROBIOLOGY: Blood cultures times two negative at 48 hours. Urine culture negative. Sputum culture was not performed due to oropharyngeal contamination, gram stain showed few gram-positive rods, few gram-negative cocci, many gram-positive cocci in pairs, chains and clusters, moderate gram-negative rods, many epithelial cells, and few WBCs. Repeat sputum culture had good quality with many WBCs, few epithelial cells, moderate gram-positive cocci in pairs and chains, few gram-negative rods and few gram-positive rods. The culture results will be available in 1-7 days. IMAGING: Chest x-ray, done 09/08/2018, showed chronic stable changes without acute pulmonary process. Chest CT, done 07/10/2019, showed superimposed consolidation involving the lateral right middle lobe and right lower lobe with small right pleural reaction. FOLLOWUP: With his primary care provider in 1-2 weeks. Continue moxifloxacin for a total 5 days of antibiotic therapy. Continue with the nystatin swish and spit. I, Sinan Moore, have independently examined this patient and performed my own physical exam, as well as reviewed the documentation and edited where necessary. I have discussed in detail with the resident / student the findings and plan of treatment as documented by the resident / student and edited their note. I agree with their findings and treatment plan and have edited their documentation. I will continue to follow the patient during this hospital stay. Time spent on discharge 34 minutes MTDD
== END 2019-07-12 11:54 | disposition home or self-care (01) | DRG 194 ==
LOC: M ED 20:45 → M ED INP 23:30 → M PCU 07-10 00:35
PROVIDERS: ADMIT Internal Medicine Nephrology; ATTEND Student in an Organized Health Care Education/Training Program
DX: J18.9 Pneumonia, unspecified organism (principal); I47.1 Supraventricular tachycardia; C91.10 Chronic lymphocytic leukemia of B-cell type not having achieved remission; E87.6 Hypokalemia; I25.10 Atherosclerotic heart disease of native coronary artery without angina pectoris; I25.2 Old myocardial infarction; I10 Essential (primary) hypertension; E78.5 Hyperlipidemia, unspecified; C61 Malignant neoplasm of prostate; D50.9 Iron deficiency anemia, unspecified; H40.9 Unspecified glaucoma; H54.8 Legal blindness, as defined in USA; H53.8 Other visual disturbances; K21.9 Gastro-esophageal reflux disease without esophagitis; K64.9 Unspecified hemorrhoids; K44.9 Diaphragmatic hernia without obstruction or gangrene; Z95.1 Presence of aortocoronary bypass graft; Z95.5 Presence of coronary angioplasty implant and graft; Z88.5 Allergy status to narcotic agent; Z91.041 Radiographic dye allergy status; Z79.82 Long term (current) use of aspirin; Z79.899 Other long term (current) drug therapy

== ENCOUNTER → 2019-08-29 | Outpatient (REF) | payer MEDICARE, OTHER ==
[~2019-08-29] MED LIST changes: +ACET-683 PO; +LISI-542 PO; +LISI2.5T76 PO; +MIDO2.5T PO; +MOXI1TAB PO; +NORV5TAB PO; +PRES10CA2 PO; +PROAAER10 INH; +RHOP0.02 OU; +TIMO0.5S29 OU; +[UNRECOGNIZED DRUG - OTHER] PO; +prevagen PO
[2019-08-29 18:02] LABS: IONIZED CALCIUM 4.9 MG/DL (4.5-5.3)
== END ==
LOC: M LAB REF 16:39
PROVIDERS: ATTEND Internal Medicine
DX: C61 Malignant neoplasm of prostate (principal)

== ENCOUNTER 2020-02-28 07:41 | Inpatient (IN) | payer MEDICARE, BC, OTHER ==
[~2020-02-28] VITALS: Ht 182.9 cm; Wt 72.7 kg
[~2020-02-28 07:41] MED LIST changes: -ASPI81TA85 PO; +ASPI81TA86 PO; -LISI2.5T76 PO; +LISI2.5T8 PO; +TIMO0.5S29 OD; -TIMO0.5S29 OU
[2020-02-28] MEDS ORDERED: ONDANSETRON 4MG/2ML VIAL IV ONE (08:30)
[2020-02-28 08:55] LABS: HEMATOCRIT 38.2 % (42.0-52.0); HEMOGLOBIN 12.4 g/dl (13.5-17.5); MEAN CORPUSCULAR HEMOGLOBIN 28.7 pg (27.0-33.0); MEAN CORPUSCULAR HGB CONC 32.5 g/dl (32.0-36.5); MEAN CORPUSCULAR VOLUME 88.4 fl (80.0-96.0); PLATELET COUNT, AUTOMATED 106 10^3/uL (150-450); RED BLOOD COUNT 4.32 10^6/uL (4.30-6.10)
[2020-02-28 09:02] LABS: WHITE BLOOD COUNT 19.7 10^3/uL (4.0-10.0)
[2020-02-28 09:15] LABS: ALBUMIN 3.9 GM/DL (3.2-5.2); BILIRUBIN,DIRECT 0.3 MG/DL (0.0-0.2); BILIRUBIN,TOTAL 0.9 MG/DL (0.2-1.0)
[2020-02-28] MEDS: NS 1,000 ML IV SCH ×4 (09:26→23:59)
[2020-02-28 09:42] LABS: ATYPICAL LYMPH 1 % (0-5); LYMPHOCYTES 34 % (16-44); MONOCYTES 1 % (0-5); NEUTROPHILS 63 % (28-66)
[2020-02-28 09:44] LABS: ANISOCYTOSIS 1+; PLATELET ESTIMATE DECREASED (NORMAL)
--- NOTE | 2020-02-28 10:21 | REP ---
Clinical: Pancreatitis. Technique: Real time hopkins scale and color evaluation using curved array transducer. Findings: Liver and pancreas are normal in contour, size, echogenicity without focal hepatic or pancreatic lesion identified. Gallbladder demonstrates multiple gallstones up to 7 mm without gallbladder wall thickening or pericholecystic fluid. No biliary ductal dilatation is appreciated and the common bile duct measures 3.5 mm diameter. Right kidney is normal in reniform shape without hydronephrosis and measures 10.6 x 4.2 x 4.2 cm. No ascites. Impression: Cholelithiasis Electronically Signed by Zeeshan George MD 02/28/2020 10:13 A
[2020-02-28] MEDS: READI-CAT 2 PO SCH ×2 (11:06→12:24)
[2020-02-28] MEDS ORDERED: ATOR40TA75 PO (12:31)
[2020-02-28] MEDS ORDERED: LISI10TA4 PO (12:31)
[2020-02-28] MEDS ORDERED: D31000TA2 PO (12:31)
--- NOTE | 2020-02-28 13:49 | REP ---
Clinical: History of pancreatitis. Technique: Axial noncontrast images of the abdomen with coronal and sagittal re-formations. Comparison: 08/06/2010. Findings: Lung bases demonstrate chronic-appearing emphysematous and fibroatelectatic changes. Mild peripancreatic stranding and reactive lymph nodes are consistent with the given history of pancreatitis. No associated abscess or drainable collection identified. Gallbladder demonstrates gallstone. Liver, spleen, and right adrenal gland appear normal. Left adrenal gland is not identified and surgical clips in the left upper quadrant are noted. Kidneys demonstrate bilateral hypodensities (left greater than right) which are nonspecific. No perinephric stranding or nephroureterolithiasis. Evaluation of the visualized enteric system demonstrates moderate colonic fecal stasis and diverticulosis without evidence for obstruction. No ascites. Atherosclerotic changes to the aorta and vasculature noted without aneurysm. Musculoskeletal structures demonstrate degenerative changes. Impression: 1. Peripancreatic stranding and subtle reactive adenopathy consistent with the given history of pancreatitis. 2. Cholelithiasis. 3. Diverticulosis and fecal stasis. Electronically Signed by Zeeshan George MD 02/28/2020 01:40 P
[2020-02-28 16:14] LABS: BLOOD UREA NITROGEN 18 MG/DL (7-18); CALCIUM LEVEL 8.4 MG/DL (8.8-10.2); CARBON DIOXIDE LEVEL 26 MEQ/L (21-32); CHLORIDE LEVEL 109 MEQ/L (98-107); CREATININE FOR GFR 0.73 MG/DL (0.70-1.30); GLOMERULAR FILTRATION RATE > 60.0 (>35); GLUCOSE, FASTING 89 MG/DL (70-100); POTASSIUM SERUM 3.7 MEQ/L (3.5-5.1); SODIUM LEVEL 140 MEQ/L (136-145)
[2020-02-28 17:39] VITALS: BP 142/82
--- NOTE | 2020-02-28 17:51 | ECGEPIP ---
[facility] - ED Test Date: 2020-02-28 Pat Name: VANGIE CARSON Department: Room: - Gender: Male Physician Office Assistant: kk : [id number] Requested By: Reggie Holt Order Number: [id number] Reading MD: Tonja York Measurements Intervals Heber Rate: 85 P: -28 UT: 292 QRS: 70 QRSD: 100 T: -1 QT: 392 QTc: 468 Interpretive Statements SINUS RHYTHM WITH FIRST DEGREE AV BLOCK NONSPECIFIC T-WAVE ABNORMALITY DECREASED RATE 07/09/19 Electronically Signed on 02-28-2020 17:51:07 EDT by Tonja York
[2020-02-28] MEDS: LUMIGAN 0.01% OU SCH (20:07)
[2020-02-28] MEDS: HEPARIN SOD (PORCINE) 5000UNITS/ML 1ML VIAL/SYRINGE SC SCH (20:07)
[2020-02-28] MEDS: OPTH OU SCH ×3 (20:07→20:10)
[2020-02-28] MEDS: RHOPRESSA 0.02% OU SCH (20:08)
[2020-02-28] MEDS: SIMBRINZA OU SCH ×2 (20:09→20:10)
[2020-02-28] MEDS ORDERED: ATORVASTATIN 20 MG TAB PO SCH (21:00)
[2020-02-28 22:00] VITALS: BP_SYST 124; BP_SYST 134; BP_DIAS 60; BP_DIAS 73
[2020-02-28] MEDS ORDERED: KETOROLAC 30 MG/ML 1ML VIAL IV PRN (23:15)
--- NOTE | 2020-02-28 23:37 | HPEPDOC ---
[facility] Medical History & Physical Date of Admission Feb 28, 2020 Date of Service: Feb 28, 2020 History and Physical CHIEF COMPLAINT: Abdominal pain HISTORY OF PRESENT ILLNESS: Patient is an 89-year-old male with history of prostate CA, currently undergoing treatment, prior pheochromocytoma, hyperlipidemia, labile blood pressure (hypo-and hypertension). CAD, c/b [place], status post PCI and CABG, impaired vision, who presents for 1 day of abdominal pain. Patient was in his usual state of health until night prior to admission when he noted some abdominal pressure. He went to sleep and awoke at 2 AM with episode of nausea/vomiting. Patient went back to sleep and awoke at 6:30 AM and given ongoing symptoms, he called PMD who referred him to the hospital. Patient describes the abdominal pain as sudden onset, across the top of the abdomen, constant, sharp/achy, nonradiating, no alleviating or exacerbating factors, 34/10, somewhat positional. Patient endorses fever, chills, abdominal pain, nausea, vomiting, but denies any cough, sore throat, nausea, diarrhea, leg pain or swelling. PAST MEDICAL HISTORY: 1. History of prostate cancer. 2. CAD complicated by [place]. 3. Pheochromocytoma. 4. Labile BP (hypo- & hypertension) 5. Hyperlipidemia. 6. Impaired vision. 7. Glaucoma PAST SURGICAL HISTORY: 1. PCI and 3. 3v-CABG. 2. Adrenal surgery. 3. Hernia repair. 4. Adenoidectomy SOCIAL HISTORY: Marital status: , lives with Tobacco use: Never smoker ETOH: Denies Illicit drug use:. Denies FAMILY HISTORY: Cancer ALLERGIES: Please see below. REVIEW OF SYSTEMS: 14 point ROS reviewed and pertinent positives and negatives documented as per HPI. All other reviewed ROS negative. HOME MEDICATIONS: Please see below. PHYSICAL EXAMINATION: VITAL SIGNS: See below GENERAL APPEARANCE: Elderly man sitting up in bed, no acute distress, pleasant on interview HEENT:, Minimally reactive pupils, OP clear. NECK: ? Lymphadenopathy left side CARDIOVASCULAR: ?ectopy vs. irregular, + murmur LUNGS: CTA B/L, no W/R/R. ABDOMEN: Active bowel sounds, TTP (mild). Left upper and right upper quadrants. EXTREMITIES: Trace lower extremity edema, intact distal pulses. NEUROLOGICAL:, Normal speech, no focal deficits appreciated. PSYCHIATRIC:. AAO 3, mood normal. LABORATORY DATA: See below. IMAGING: CT ab/pelvis (personally reviewed): 1. Peripancreatic stranding and subtle reactive adenopathy consistent with the given history of pancreatitis. 2. Cholelithiasis. 3. Diverticulosis and fecal stasis Gallbladder US: Impression: Cholelithiasis MICROBIOLOGY: Please see below. ASSESSMENT: Patient is an 89-year-old male with history of prostate CA, currently undergoing treatment, prior pheochromocytoma, hyperlipidemia, labile blood pressure (hypo-and hypertension). CAD c/b [place], status post PCI and CABG, impaired vision, who presents for 1 day of abdominal pain found to have pancreatitis with lipase >27,[address] abdomen pelvis findings. PLAN: #Acute pancreatitis Admit to inpatient Etiology unclear at this time Aggressive fluid hydration Pain control. Nothing by mouth Zofran for nausea. Trend WBC #Labile BP Trend BP Will treat hyper or hypo-tension #Glaucoma Continue home eyedrops #HLD Continue home meds #History of prostate cancer. Continue home meds #CAD Continue home meds DVT PPX: Heparin Disposition: Home pending symptomatic improvement Vital Signs Vital Signs Date Time Temp Pulse Resp B/P (MAP) Pulse Ox O2 Delivery O2 Flow Rate FiO2 02/28/20 14:15 75 18 162/73 (102) 95 Room Air 02/28/20 12:45 100.0 Laboratory Data Labs 24H Laboratory Tests 2 02/28/20 08:20: Neutrophils (%) (Auto) , Nucleated Red Blood Cells % (auto) 0.0, Neutrophils 63, Band Neutrophils 1, Lymphocytes (Manual) 34, Monocytes (Manual) 1, Atypical Lymphocytes 1, Anisocytosis 1+, Platelet Estimate DECREASED, Total Bilirubin 0.9, Direct Bilirubin 0.3H, Aspartate Amino Transf (AST/SGOT) 19, Alanine Aminotransferase (ALT/SGPT) 22, Alkaline Phosphatase 72, Total Protein 7.0, Albumin 3.9, Albumin/Globulin Ratio 1.3, Lipase [id number] 02/28/20 08:26: POC Glucose (Misc Panel) 120H, POC Sodium (Misc Panel) 139, POC Potassium (Misc Panel) 3.6, POC Chloride (Misc Panel) 102, POC Total CO2 (Misc Panel) 21.0L, POC Blood Urea Nitrogen (Misc Panel 24, POC Ionized Calcium (Misc Panel) 4.7, POC Lactate (Misc Panel) 1.43, POC Creatinine (Misc Panel) 0.7, POC Hematocrit (Misc Panel) 38.0 02/28/20 08:29: POC Troponin I ([facility] [place] [facility]) 0.01 CBC/BMP Laboratory Tests 02/28/20 08:20 Home Medications Scheduled Acetaminophen (Acetaminophen) 500 Mg Tablet, 500 MG PO BID TAKES AT QHS/MIDDLE OF THE NIGHT Aspirin (Aspir 81) 81 Mg Tab, 81 MG PO DAILY Atorvastatin Calcium (Atorvastatin Calcium) 40 Mg Tablet, 40 MG PO QPM Bimatoprost (Lumigan) 50 Drop/2.5 Ml Nusrat, 1 DROP OU QHS Brinzolamide/Brimonidine Tart (Simbrinza 1%-0.2% Eye Drops) 1 Nati Nati, 1 DROP OU TID Cholecalciferol (Vitamin D3) (Vitamin D3) 1,000 Unit Tablet, 1,000 UNITS PO DAILY Docusate Sodium (Colace) 100 Mg Cap, 100 MG PO QPM Multivitamin (Daily Vitamin Formula) 1 Tab Tab, 1 TAB PO DAILY Netarsudil Mesylate (Rhopressa) 2.5 Ml Drops, 1 DROP OU QHS Timolol Maleate (Timolol Maleate) 0.5% 5ML Drops, 1 DROP OD QAM Vit C/E/Zn/Coppr/Lutein/Zeaxan (Preservision Areds 2 Softgel) 1 Each Capsule, 1 EACH PO QPM [Evolv Immun] , 1 TAB PO DAILY [prevagen] , 1 TAB PO DAILY OTC MEMORY AID Scheduled PRN Amlodipine Besylate (Norvasc) 5 Mg Tablet, 5 MG PO DAILY PRN for HYPERTENSION USE FOR EMERGENCY HIGH BLOOD PRESSURE ONLY IF LISINOPRIL NOT EFFECTIVE Lisinopril (Lisinopril) 10 Mg Tablet, 5 MG PO BID PRN for HYPERTENSION TAKES IF BP 130/80 Midodrine HCl (Midodrine HCl) 2.5 Mg Tablet, 2.5 MG PO PRN PRN for HYPOTENSION USE ONLY IF BP BELOW 100/80 Allergies Coded Allergies: Contrast Media (Verified Allergy, Unknown, PT STATES NOT ALLERGIC , 02/28/20) oxycodone (Verified Allergy, Unknown, PT STATES NOT ALLERGIC , 02/28/20) A-FIB/CHADSVASC A-FIB History Current/History of A-Fib/PAF?: No BHARATH MONROE MD Feb 28, 2020 15:15
[2020-02-29] MEDS: NS 1,000 ML IV SCH ×5 (04:15→20:09)
[2020-02-29 06:00] VITALS: BP 157/73
[2020-02-29 06:45] LABS: BLOOD UREA NITROGEN 15 MG/DL (7-18); CALCIUM LEVEL 8.1 MG/DL (8.8-10.2); CARBON DIOXIDE LEVEL 24 MEQ/L (21-32); CHLORIDE LEVEL 113 MEQ/L (98-107); CREATININE FOR GFR 0.68 MG/DL (0.70-1.30); GLOMERULAR FILTRATION RATE > 60.0 (>35); GLUCOSE, FASTING 77 MG/DL (70-100); POTASSIUM SERUM 3.4 MEQ/L (3.5-5.1); SODIUM LEVEL 143 MEQ/L (136-145)
[2020-02-29] MEDS: ASPIRIN 81 MG ENTERIC TAB PO SCH (08:40)
[2020-02-29] MEDS: HEPARIN SOD (PORCINE) 5000UNITS/ML 1ML VIAL/SYRINGE SC SCH ×2 (08:40→20:09)
[2020-02-29] MEDS: TIMOLOL MALEATE 0.5% OPHTH SOLN 5 ML OD SCH (08:41)
[2020-02-29] MEDS: SIMBRINZA OU SCH ×3 (08:41→20:12)
[2020-02-29] MEDS: OPTH OU SCH ×4 (08:41→20:12)
[2020-02-29] MEDS: POTASSIUM CHLORIDE 10 MEQ SR TABLET PO SCH ×2 (12:15→20:09)
[2020-02-29 14:00] VITALS: BP 159/79
--- NOTE | 2020-02-29 19:30 | IPNPDOC ---
Date Seen The patient was seen on 02/29/20. Progress Note SUBJECTIVE: Patient seen and examined at bedside. Patient doing well with vast improvement in abdominal pain. Patient says pain is a 1/10. Patient denies any other complaints OBJECTIVE PHYSICAL EXAMINATION: VITAL SIGNS: Please see below. GENERAL APPEARANCE: Elderly man sitting up in bed, pleasant, no acute distress CARDIOVASCULAR: RRR, normal S1/2, + murmur LUNGS: CTA B/L, no W/R/R. ABDOMEN: Active bowel sounds, minimal TTP in Left upper and right upper quadrants. EXTREMITIES: Trace lower extremity edema, intact distal pulses. NEUROLOGICAL:, Normal speech, no focal deficits appreciated. PSYCHIATRIC:. AAO 3, mood normal. LABORATORY DATA, IMAGING STUDIES, MICROBIOLOGY: Please see below. DVT prophylaxis ordered?: Heparin ASSESSMENT AND PLAN: Patient is an 89-year-old male with history of prostate CA, currently undergoing treatment, prior pheochromocytoma, hyperlipidemia, labile blood pressure (hypo-and hypertension). CAD c/b [place], status post PCI and CABG, impaired vision, who presents for 1 day of abdominal pain found to have pancreatitis with lipase >27,[address] abdomen pelvis findings. Patient improving on current treatment. We will advance diet today. PROBLEMS: #Acute pancreatitis Admit to inpatient Etiology unclear at this time Aggressive fluid hydration Pain control. advance diet to clears as pain improved Zofran for nausea. Trend WBC #Labile BP Trend BP Will treat hyper or hypo-tension #Glaucoma Continue home eyedrops #HLD Continue home meds #History of prostate cancer. Continue home meds #CAD Continue home meds DVT PPX: Heparin Disposition: Home pending symptomatic improvement VS, I&O, 24H, Chu Vital Signs/I&O Vital Signs Date Time Temp Pulse Resp B/P (MAP) Pulse Ox O2 Delivery O2 Flow Rate FiO2 02/29/20 14:00 98.4 73 20 159/79 (105) 97 Room Air I&O- Last 24 Hours up to 6 AM 02/29/20 06:00 Intake Total 2900 ml Output Total 950 ml Balance 1950 ml Laboratory Data 24H LABS Laboratory Tests 2 02/29/20 05:44: Anion Gap 6L, Glomerular Filtration Rate > 60.0, Calcium Level 8.1L CBC/BMP Laboratory Tests 02/29/20 05:44 BHARATH MONROE MD Feb 29, 2020 19:30
[2020-02-29] MEDS: lisinopriL 5 MG TAB PO SCH (20:10)
[2020-02-29] MEDS: LUMIGAN 0.01% OU SCH (20:11)
[2020-02-29] MEDS: RHOPRESSA 0.02% OU SCH (20:12)
[2020-02-29 22:00] VITALS: BP 165/68
[2020-03-01 05:00] VITALS: BP 159/67
[2020-03-01] MEDS: NS 1,000 ML IV SCH (05:53)
[2020-03-01 06:10] LABS: HEMATOCRIT 33.7 % (42.0-52.0); HEMOGLOBIN 10.8 g/dl (13.5-17.5); MEAN CORPUSCULAR HEMOGLOBIN 28.7 pg (27.0-33.0); MEAN CORPUSCULAR VOLUME 89.6 fl (80.0-96.0); RED BLOOD COUNT 3.76 10^6/uL (4.30-6.10); WHITE BLOOD COUNT 18.5 10^3/uL (4.0-10.0)
[2020-03-01 06:28] LABS: BLOOD UREA NITROGEN 11 MG/DL (7-18); CALCIUM LEVEL 7.9 MG/DL (8.8-10.2); CARBON DIOXIDE LEVEL 23 MEQ/L (21-32); CHLORIDE LEVEL 114 MEQ/L (98-107); CREATININE FOR GFR 0.58 MG/DL (0.70-1.30); GLOMERULAR FILTRATION RATE > 60.0 (>35); GLUCOSE, FASTING 75 MG/DL (70-100); SODIUM LEVEL 140 MEQ/L (136-145)
[2020-03-01 06:55] LABS: PLATELET COUNT, AUTOMATED 93 10^3/uL (150-450)
[2020-03-01] MEDS: HEPARIN SOD (PORCINE) 5000UNITS/ML 1ML VIAL/SYRINGE SC SCH (09:00)
[2020-03-01] MEDS: POTASSIUM CHLORIDE 10 MEQ SR TABLET PO SCH (09:31)
[2020-03-01] MEDS: ASPIRIN 81 MG ENTERIC TAB PO SCH (09:31)
[2020-03-01 09:34] VITALS: BP 161/69
[2020-03-01] MEDS: lisinopriL 5 MG TAB PO SCH (09:34)
[2020-03-01] MEDS: OPTH OU SCH (09:35)
[2020-03-01] MEDS: SIMBRINZA OU SCH (09:35)
[2020-03-01] MEDS: TIMOLOL MALEATE 0.5% OPHTH SOLN 5 ML OD SCH (09:36)
== END 2020-03-02 | disposition home or self-care (01) | DRG 440 ==
LOC: M ED 07:41 → M ED INP 15:00 → ENRESERV 16:24 → M MSPAV 17:40
PROVIDERS: ADMIT Internal Medicine; ATTEND Internal Medicine
DX: K85.90 Acute pancreatitis without necrosis or infection, unspecified (principal); C61 Malignant neoplasm of prostate; E78.5 Hyperlipidemia, unspecified; I10 Essential (primary) hypertension; I25.10 Atherosclerotic heart disease of native coronary artery without angina pectoris; I25.2 Old myocardial infarction; H40.9 Unspecified glaucoma; K57.30 Diverticulosis of large intestine without perforation or abscess without bleeding; Z79.899 Other long term (current) drug therapy; Z79.82 Long term (current) use of aspirin; Z88.5 Allergy status to narcotic agent; Z91.040 Latex allergy status

== ENCOUNTER → 2020-03-05 | Outpatient (REF) | payer MEDICARE, OTHER ==
[~2020-03-05] MED LIST changes: +ATOR40TA75 PO; +D31000TA2 PO; +LISI10TA4 PO
== END ==
LOC: M LAB REF 11:18
PROVIDERS: ATTEND Internal Medicine
DX: C61 Malignant neoplasm of prostate (principal)